=== PATIENT | female | born 1975 | race Caucasian/White ===

== ENCOUNTER → 2024-10-21 | Outpatient (CLI) | payer SELFPAY, OTHER ==
--- NOTE | 2024-10-21 14:08 | MRI_ITS ---
PROCEDURE: SPINE LUMBAR (ROUTINE) 10/21/2024 REASON FOR EXAM: PAIN TECHNIQUE: Multiplanar and multisequence images were obtained without IV contrast administration. Axial and sagittal T1 and T2 weighted images were obtained. Fat suppressed images were also obtained. COMPARISON: None. FINDINGS: Moderate diffuse spondylosis. Multilevel degenerative disc disease. There is normal signal intensity from the visualized bone marrow without evidence of replacement or acute fracture. The conus is unremarkable. Normal lumbar lordosis. The vertebral alignment is within normal limits. Evaluation of the individual levels revealed the following: L5-S1: Grade 1 retrolisthesis measuring 3.4 mm. Moderate diffuse disc bulge. Bilateral facet joint arthropathy. The spinal canal is not narrowed. Mild bilateral neural foraminal narrowing. L4-5: Mild diffuse disc bulge. Superimposed broad-based left paracentral/posterolateral disc protrusion measuring 5.3 mm. Bilateral facet joint arthropathy and ligamentum flavum hypertrophy. The spinal canal is not narrowed. Mild right and moderate left neural foraminal narrowing. L3-4: There is no evidence of disk herniation. The spinal canal is not narrowed. There is no evidence of neural foramina narrowing. L2-3: There is no evidence of disk herniation. The spinal canal is not narrowed. There is no evidence of neural foramina narrowing. L1-2: There is no evidence of disk herniation. The spinal canal is not narrowed. There is no evidence of neural foramina narrowing. Normal visualized paraspinous soft tissue structures. MRI/Spine Lumbar (Routine) IMPRESSION: Spondylosis. Degenerative disc disease. Reading [facility]
== END | disposition home or self-care (01) ==
PROVIDERS: Referring Provider Student in an Organized Health Care Education/Training Program; Visit Provider Student in an Organized Health Care Education/Training Program
DX: M48.062 Spinal stenosis, lumbar region with neurogenic claudication (principal)
CPT/HCPCS: 72148